=== PATIENT | male | born 2005 | race Caucasian/White ===

== ENCOUNTER 2024-04-04 13:14 | Emergency (ER) | payer SELFPAY ==
[~2024-04-04] VITALS: Ht 182.9 cm; Wt 99.8 kg
[2024-04-04 13:20] VITALS: O2SAT 98
[2024-04-04 13:21] VITALS: BP 116/78; PULSE 60; RESP 16; TEMP 37.2; O2SAT 100
[2024-04-04] MEDS ORDERED: NAPR-681 PO (18:13)
== END 2024-04-04 18:18 | disposition home or self-care (01) ==
LOC: ER 13:14
DX: S09.90XA Unspecified injury of head, initial encounter (principal); M54.2 Cervicalgia; I10 Essential (primary) hypertension; W22.8XXA Striking against or struck by other objects, initial encounter; Y99.0 Civilian activity done for income or pay; Y92.89 Other specified places as the place of occurrence of the external cause
CPT/HCPCS: 70490; 99284